=== PATIENT | female | born 1960 | race Caucasian/White ===

== ENCOUNTER 2017-04-22 16:21 | Emergency (ER) | payer MEDICAID ==
[2017-04-22] MEDS: HYDROCODONE/APAP (5/325) TAB PO (18:50)
[2017-04-22 19:04] LABS: URINE BLOOD (Dip) POC Negative (NEGATIVE); URINE GLUCOSE (Dip) POC Negative (NEGATIVE); URINE KETONES (Dip) POC Negative (NEGATIVE); URINE LEUKOCYTE EST (Dip) POC Trace (NEGATIVE); URINE NITRITE (Dip) POC Negative (NEGATIVE); URINE TOTAL PROTEIN POC Negative (NEGATIVE)
== END 2017-04-22 21:46 | disposition home or self-care (01) ==
LOC: FTE 16:21
DX: M54.5 Low back pain (principal); M54.6 Pain in thoracic spine; R51 Headache
CPT/HCPCS: 70450; 72072; 72100; 72125; 73080-LT; 81003; 99285-25